=== PATIENT | female | born 1955 | race Caucasian/White ===

== ENCOUNTER → 2024-01-02 06:25 | Day surgery (SDC) | payer MEDICARE, OTHER, SELFPAY | LOC: GI 06:25 | PROVIDERS: ATTENDING PHYSICIAN Internal Medicine Gastroenterology; FAMILY PHYSICIAN Family Medicine | DX: Z12.11 Encounter for screening for malignant neoplasm of colon (principal); K57.30 Diverticulosis of large intestine without perforation or abscess without bleeding; K62.1 Rectal polyp; K64.8 Other hemorrhoids; Z86.010 Personal history of colon polyps | CPT/HCPCS: 45380; 88305 ==

== ENCOUNTER → 2024-11-01 06:53 | Outpatient (REF) | payer MEDICARE, OTHER, SELFPAY ==
[2024-11-01 08:08] LABS: % Basophils 2.2 % (0-2); % Eosinophils 3.3 % (0-6); % Lymphocytes 37.9 % (20.5-51.1); % Monocytes 11.2 % (1.7-9.3); % Neutrophils 45.4 % (42.2-75.2); Absolute Basophils 0.1 10^3/uL (0-0.2); Absolute Eosinophils 0.1 10^3/uL (0-0.7); Absolute Monocytes 0.3 10^3/uL (0.1-0.6); Absolute Neutrophils 1.2 10^3/uL (1.4-6.5); Hematocrit 38.7 % (37.0-47.0); Hemoglobin 12.9 g/dL (12.0-16.0); Mean Corp Hgb Conc. 33.3 g/dL (33.0-37.0); Mean Corpuscular Hgb 30.7 pg (27.0-31.0); Mean Corpuscular Volume 92.1 fL (81.0-99.0); Mean Platelet Volume 9.5 fL (7.4-10.4); Nucleated Red Blood Cells % 0 %; Platelet Count 233 10^3/uL (130-400); Red Cell Dist. Width 13.1 % (11.5-14.5); White Blood Cell Count 2.7 10^3/uL (4.8-10.8)
[2024-11-01 08:16] LABS: Urine Albumin Trace (Neg - Trace); Urine Bilirubin Negative (Negative); Urine Character Clear (Clear); Urine Color Yellow; Urine Glucose Negative (Negative); Urine Ketone Negative (Negative); Urine Leukocyte Trace (Negative); Urine Nitrite Negative (Negative); Urine Occult Blood 1+ (Negative); Urine Urobilinogen Negative (Neg - 1+); Urine pH 6.5 (5.0-9.0)
[2024-11-01 08:35] LABS: ALT (SGPT) 29 U/L (0-35); AST (SGOT) 33 U/L (14-36); Albumin 4.7 g/dl (3.5-5.0); Alkaline Phosphatase 69 U/L (38-126); Blood Urea Nitrogen 17 mg/dl (7-17); Calcium 9.6 mg/dl (8.4-10.2); Carbon Dioxide 26 mmol/L (22-30); Chloride 103 mmol/L (98-107); Glucose 95 mg/dl (70-99); HDL Cholesterol 69 mg/dl; LDL Cholesterol, Calculated 158 mg/dl; Sodium 139 mmol/L (135-145); Total Bilirubin 0.5 mg/dl (0.2-1.3); Total Cholesterol 257 mg/dl (50-199); Total Protein 7.8 g/dl (6.3-8.2); Triglyceride 152 mg/dl (10-149); Very Low Density Lipoprotein 30 mg/dl (0-30); eGFR > 60.00
[2024-11-01 08:50] LABS: Free T4 1.47 ng/dl (0.78-2.19)
[2024-11-01 09:04] LABS: TSH 2.35 uIU/ml (0.47-4.68)
[2024-11-01 09:06] LABS: Urine Mucus Many
[2024-11-01 09:07] LABS: Urine Amorphous Seen
[2024-11-01 09:10] LABS: Urine White Cell 0-2 /HPF (0-5)
[2024-11-01 10:55] LABS: Vitamin D, 25-OH*** 33.6 ng/mL (30-80)
== END ==
LOC: REG 06:53
PROVIDERS: ATTENDING PHYSICIAN Family Medicine
DX: M85.89 Other specified disorders of bone density and structure, multiple sites (principal); E03.9 Hypothyroidism, unspecified; D72.819 Decreased white blood cell count, unspecified; N39.3 Stress incontinence (female) (male); Z13.220 Encounter for screening for lipoid disorders; G62.9 Polyneuropathy, unspecified; E55.9 Vitamin D deficiency, unspecified
CPT/HCPCS: 36415; 80053; 80061; 81003; 81015; 82306; 84439; 84443; 85025

== ENCOUNTER → 2024-11-01 07:18 | Outpatient (REF) | payer MEDICARE, OTHER, SELFPAY | LOC: WDC 07:18 | PROVIDERS: ATTENDING PHYSICIAN Family Medicine | DX: Z12.31 Encounter for screening mammogram for malignant neoplasm of breast (principal) | CPT/HCPCS: 77063; 77067 ==

== ENCOUNTER 2025-01-01 10:54 | Outpatient (RCR) | payer MEDICARE, OTHER, SELFPAY | END 2025-01-01 23:59 | disposition home or self-care (01) | LOC: RPT 10:54 | PROVIDERS: ATTENDING PHYSICIAN Physician Assistant; FAMILY PHYSICIAN Family Medicine | DX: M25.562 Pain in left knee (principal); M17.12 Unilateral primary osteoarthritis, left knee; M17.2 Bilateral post-traumatic osteoarthritis of knee; Z73.6 Limitation of activities due to disability; G60.9 Hereditary and idiopathic neuropathy, unspecified | CPT/HCPCS: 97110; 97112; 97162 ==

== ENCOUNTER 2025-01-16 12:01 | Outpatient (RCR) | payer MEDICARE, OTHER, SELFPAY | END 2025-01-18 11:42 | disposition home or self-care (01) | LOC: RPT 12:01 | PROVIDERS: ATTENDING PHYSICIAN Physician Assistant; FAMILY PHYSICIAN Family Medicine | DX: M25.562 Pain in left knee (principal); M17.12 Unilateral primary osteoarthritis, left knee; Z73.6 Limitation of activities due to disability; G60.9 Hereditary and idiopathic neuropathy, unspecified; M17.2 Bilateral post-traumatic osteoarthritis of knee | CPT/HCPCS: 97110 ==

== ENCOUNTER → 2025-02-18 06:44 | Outpatient (REF) | payer MEDICARE, OTHER, SELFPAY ==
[2025-02-18 07:57] LABS: Urine Albumin Negative (Neg - Trace); Urine Bilirubin Negative (Negative); Urine Character Clear (Clear); Urine Color Yellow; Urine Glucose Negative (Negative); Urine Ketone Negative (Negative); Urine Leukocyte 2+ (Negative); Urine Nitrite Negative (Negative); Urine Occult Blood 2+ (Negative); Urine Specific Gravity 1.015 (<1.030); Urine Urobilinogen Negative (Neg - 1+)
[2025-02-18 08:10] LABS: ALT (SGPT) 25 U/L (0-35); AST (SGOT) 29 U/L (14-36); Albumin 4.4 g/dl (3.5-5.0); Alkaline Phosphatase 65 U/L (38-126); Blood Urea Nitrogen 18 mg/dl (7-17); Calcium 9.3 mg/dl (8.4-10.2); Carbon Dioxide 25 mmol/L (22-30); Chloride 107 mmol/L (98-107); Glucose 97 mg/dl (70-99); HDL Cholesterol 57 mg/dl; LDL Cholesterol, Calculated 72 mg/dl; Potassium 4.5 mmol/L (3.5-5.1); Sodium 142 mmol/L (135-145); Total Bilirubin 0.5 mg/dl (0.2-1.3); Total Cholesterol 156 mg/dl (50-199); Triglyceride 138 mg/dl (10-149); Very Low Density Lipoprotein 27 mg/dl (0-30); eGFR > 60.00
[2025-02-18 09:00] LABS: Urine Red Blood Cell 0-2 /HPF (0-2); Urine Squamous Cell 0-2 /LPF (Few); Urine Urothelial Cell 0-2 /LPF (FEW); Urine White Cell 0-2 /HPF (0-5)
== END ==
LOC: REG 06:44
PROVIDERS: ATTENDING PHYSICIAN Family Medicine
DX: R82.90 Unspecified abnormal findings in urine (principal); E78.5 Hyperlipidemia, unspecified
CPT/HCPCS: 36415; 80053; 80061; 81003; 81015

== ENCOUNTER → 2025-07-23 08:28 | Outpatient (REF) | payer MEDICARE, OTHER, SELFPAY ==
[2025-07-23 09:09] LABS: Hematocrit 36.3 % (37.0-47.0); Hemoglobin 12.0 g/dL (12.0-16.0); Mean Corp Hgb Conc. 33.1 g/dL (33.0-37.0); Mean Corpuscular Volume 91.7 fL (81.0-99.0); Nucleated Red Blood Cells % 0 %; Platelet Count 198 10^3/uL (130-400); Red Cell Dist. Width 13.0 % (11.5-14.5)
[2025-07-23 09:13] LABS: Urine Character Clear (Clear)
[2025-07-23 10:00] LABS: ALT (SGPT) 29 U/L (0-35); AST (SGOT) 29 U/L (14-36); Albumin 4.2 g/dl (3.5-5.0); Alkaline Phosphatase 72 U/L (38-126); Blood Urea Nitrogen 12 mg/dl (7-17); Calcium 9.3 mg/dl (8.4-10.2); Carbon Dioxide 27 mmol/L (22-30); Chloride 107 mmol/L (98-107); Glucose 97 mg/dl (70-99); HDL Cholesterol 68 mg/dl; LDL Cholesterol, Calculated 87 mg/dl; Potassium 4.5 mmol/L (3.5-5.1); Sodium 139 mmol/L (135-145); Total Protein 7.0 g/dl (6.3-8.2); Very Low Density Lipoprotein 20 mg/dl (0-30); eGFR > 60.00
[2025-07-23 10:11] LABS: Vitamin D, 25-OH*** 40.6 ng/mL (30-80)
[2025-07-23 10:24] LABS: TSH 1.38 uIU/ml (0.47-4.68)
[2025-07-23 11:25] LABS: Urine Squamous Cell 0-2 /LPF (Few)
[2025-07-23 11:26] LABS: Urine Urothelial Cell 0-2 /LPF (FEW)
[2025-07-23 11:28] LABS: Urine White Cell 0-2 /HPF (0-5)
== END ==
LOC: REG 08:28
PROVIDERS: ATTENDING PHYSICIAN Family Medicine
DX: M85.89 Other specified disorders of bone density and structure, multiple sites (principal); R82.90 Unspecified abnormal findings in urine; E78.5 Hyperlipidemia, unspecified; E03.9 Hypothyroidism, unspecified; D72.819 Decreased white blood cell count, unspecified
CPT/HCPCS: 36415; 80053; 80061; 81003; 81015; 82306; 84439; 84443; 85025

== ENCOUNTER → 2025-10-01 06:37 | Outpatient (REF) | payer MEDICARE, OTHER, SELFPAY | LOC: MRI 06:37 | PROVIDERS: ATTENDING PHYSICIAN Orthopaedic Surgery; FAMILY PHYSICIAN Family Medicine | DX: M25.562 Pain in left knee (principal) | CPT/HCPCS: 73721 ==

== ENCOUNTER 2025-10-09 07:08 | Outpatient (RCR) | payer MEDICARE, OTHER, SELFPAY | END 2025-10-09 23:59 | disposition home or self-care (01) | LOC: RPT 07:08 | PROVIDERS: ATTENDING PHYSICIAN Orthopaedic Surgery; FAMILY PHYSICIAN Family Medicine | DX: M25.511 Pain in right shoulder (principal); M75.81 Other shoulder lesions, right shoulder; Z73.6 Limitation of activities due to disability | CPT/HCPCS: 97010; 97110; 97112; 97140; 97161 ==